=== PATIENT | female | born 1980 | race Caucasian/White ===

== ENCOUNTER → 2017-06-05 | Outpatient (CLI) | payer BC ==
--- NOTE | 2017-06-05 12:43 | US ---
EXAMINATION TYPE: US thyroid st tissue head/neck DATE OF EXAM: 06/05/2017 COMPARISON: 03/31/2015 CLINICAL HISTORY: 36-year-old female goiter, E04.9. Patient states hard time swallowing. TECHNIQUE: Multiple sonographic images of the thyroid gland are obtained. Findings: Right Lobe: 5.2 x 1.5 x 1.3 cm Overall Parenchyma: homogenous Left Lobe: 4.9 x 1.1 x 1.8 cm Overall Parenchyma: homogeneous Isthmus Thickness: 0.4 cm No discrete nodule. Bilateral neck scanned, no evidence of lymphadenopathy. IMPRESSION: Borderline to mild thyromegaly. No discrete nodule.
== END | disposition home or self-care (01) ==
LOC: RADUSWWP 12:12
PROVIDERS: ATTEND Family Medicine
DX: E01.0 Iodine-deficiency related diffuse (endemic) goiter (principal)
CPT/HCPCS: 76536